=== PATIENT | female | born 1975 | race Caucasian/White ===

== ENCOUNTER → 2022-01-11 14:44 | Outpatient (CLI) | payer OTHER, MEDICAID, SELFPAY ==
--- NOTE | 2022-01-11 14:46 | DI.MRI.S_ITS ---
PROCEDURE: MR CERVICAL SPINE WO CON INDICATIONS: persistent neck pain with intermittent left arm radiculopat TECHNIQUE: Noncontrast sagittal T1 spin echo and T2 fast spin echo, sagittal STIR, foraminal oblique sagittal T2 fast spin echo, and axial gradient echo or T2 fast spin echo through the cervical spine. COMPARISON: [facility] ([place]), CR, XR CERVICAL SPINE 2V OR 3V, 02/23/2021, 11:23. FINDINGS: Image quality: Excellent. Alignment and Curvature: There is mild, approximately 3 millimeters of C5-C6 anterolisthesis. There is trace, approximately 2 millimeters of C6-C7 retrolisthesis. There is straightening normal cervical spine curvature. Bone Marrow: Marrow demonstrates normal overall signal. Spinal Cord: Visualized spinal cord has normal size and signal. No cerebellar tonsillar herniation. Paraspinous Soft Tissues: No paravertebral masses. Prevertebral soft tissues are normal in thickness. C2-C3: Has a normal appearance. Mild left facet hypertrophy. No central stenosis. Moderate left neural foraminal narrowing. No neural compression. C3-C4: Disc has a normal appearance. Mild left facet hypertrophy. No central stenosis. Mild left neural foraminal narrowing. No neural compression. C4-C5: Loss of disc signal and slight loss of disc height. Mild, diffuse disc bulge. Mild bilateral facet hypertrophy. No central stenosis. No neural foraminal narrowing. No neural compression. C5-C6: Loss of disc signal and slight loss of disc height. Mild to moderate diffuse disc bulge. Mild right and moderate left facet hypertrophy. Mild left uncovertebral joint hypertrophy. Mild narrowing of the central canal. Mild foraminal narrowing. No neural compression. C6-C7: Loss of disc signal. Mild to moderate diffuse disc bulge. Mild bilateral facet hypertrophy. Mild narrowing of the central canal. No neural foraminal narrowing. No neural compression. C7-T1: Normal appearance. IMPRESSION: 1. Multilevel degenerative disc disease. 2. Multilevel facet arthropathy. 3. No severe central canal narrowing. 4. No severe neural foraminal narrowing. 5. No neural compression. Dictated by: Erika Enrique MD, PhD on 01/11/2022 at 16:29 Approved by: Erika Enrique MD, PhD on 01/11/2022 at 16:33
== END ==
PROVIDERS: PCP Family Medicine; Referring Provider Family Medicine; Visit Provider Family Medicine
DX: M50.121 Cervical disc disorder at C4-C5 level with radiculopathy (principal); M47.22 Other spondylosis with radiculopathy, cervical region
CPT/HCPCS: 72141

== ENCOUNTER 2024-02-26 12:12 | Emergency (ER) | payer OTHER, MEDICAID, SELFPAY ==
[2024-02-26 12:16] VITALS: BP 137/71; PULSE 96; RESP 22; TEMP 36.8; O2SAT 95
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
--- NOTE | 2024-02-26 12:20 | PC.NURSE ---
Addendum entered by Brigida Swanson R.N. 02/26/24 13:57: patient smells of ETOH when asked if she had consumed any alcohol stupid question Original Note: Patient presented to ER very upset, tearful. Dr villegas at bedside with officers present. Patient became agitated, confrontational moving towards Dr Villegas. Patient repeatedly calling and staff inappropriate names such as kiley Davis Patient repeatedly made statements I don't want to live, there is no reason for me to be here No one can help me, no one loves me, I am going to from cancer anyways so why can't I just Patient agreeable at one point to lay down and get a blood draw. Tolerated fairly. Patient escalates easily, requires multiple people and attempts to redirect and calm down.
[2024-02-26 12:46] LABS: Add Manual Diff / Slide Review NO; Basophils Absolute Auto 100 /uL (0-100); Basophils Percent Auto 1.4 % (0-2); Eosinophils Absolute Auto 100 /uL (0-450); Hematocrit 45.9 % (36-46); Hemoglobin 15.7 g/dL (12.0-16.0); Lymphocytes Absolute Auto 1700 /uL (1100-4500); Lymphocytes Percent Auto 21.5 % (25-40); Mean Corpuscular HGB Conc 34.2 % (30-36); Mean Corpuscular Hemoglobin 34.4 PG (26-34); Mean Corpuscular Volume 100.6 fL (80-100); Monocytes Absolute Auto 300 /uL (0-900); Monocytes Percent Auto 3.9 % (3-14); Neutrophils Absolute Auto 5700 /uL (1500-7000); Neutrophils Percent Auto 72.2 % (50-75); Platelet Count 278 X10^3/uL (150-400); Red Blood Cell Count 4.56 X10^6/uL (4.0-5.2); Red Cell Distribution Width 13.4 % (11.6-14.8); White Blood Cell Count 7.9 X10^3/uL (4.5-11.0)
[2024-02-26] MEDS: OLANZapine 10 MG VIAL IM (12:50)
[2024-02-26] MEDS: LORazepam 2 MG/ML INJ IM (12:50)
[2024-02-26 12:58] LABS: Alanine Aminotransferase 68 IU/L (<35); Albumin 4.9 g/dL (3.5-5.0); Albumin Globulin Ratio 1.3 (1.0-2.8); Alkaline Phosphatase 91 U/L (38-126); Aspartate Aminotransferase 56 IU/L (14-36); BUN Creatinine Ratio 15.3 (6-22); Bilirubin Total 0.4 mg/dL (0.2-1.3); Blood Urea Nitrogen 11 mg/dL (7-17); Calcium 8.9 mg/dL (8.4-10.2); Carbon Dioxide 19 mmol/L (22-32); Chloride 112 mmol/L (98-107); Estimated Glomerular Filt Rate > 60 mL/min (>60); Globulin 3.8 g/dL (1.7-4.1); Glucose 113 mg/dL (70-100); HEMOLYSIS < 15 (0-50); Sodium 146 mmol/L (137-145); Total Protein 8.7 g/dL (6.3-8.2)
[2024-02-26 13:05] LABS: Ethanol (ETOH) 293 mg/dL
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
[2024-02-26 13:14] LABS: HCG Quantitative /Beta subunit < 2.39 mIU/mL
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
--- NOTE | 2024-02-26 13:30 | PC.NURSE ---
1230, after Triage assessment was completed, in which patient reported she was not suicidal, she then proceeded to report to multiple staff members that I want to . I heard her stating I want to hurt myself, just let me . Dr. silverman informed and aware that patient is a danger to self and is suicidal.
--- NOTE | 2024-02-26 13:31 | PC.NURSE ---
BINDERY MANAGER NOTE: patient is pulling left arm to try to break the restraint to go to the restroom. A bed umanzor was offered for patient and staff safety. Patient refused and said Find then Im going to piss the bed. patient continues to tug arms at legs with restraints after being asked not to so she does not cause any harm to herself.
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
[2024-02-26 13:35] LABS: TSH w/ Reflex to FT4 0.89 uIU/mL (0.47-4.68)
--- NOTE | 2024-02-26 13:45 | PC.NURSE ---
patient continues to pull and tug on restraints
--- NOTE | 2024-02-26 14:00 | PC.NURSE ---
patient continues to sit up and down in bed pulling and biting at restraints. When I try to verbally intervene the patient beings yelling at me.
--- NOTE | 2024-02-26 14:19 | PC.NURSE ---
Addendum entered by Cierra Nichols R.N. 02/26/24 14:48: 1430 Pt removed left arm restraint and tugging at and trying to remove bilateral LE restraints. Spoke with patient and she stated that she is going to kill herself if I take these restraints off. Pt became agitated, aggressive and began shouting at and calling ED staff vulgar names. Pt placed back in restraints. Original Note: LUE restraint removed.
--- NOTE | 2024-02-26 14:25 | PC.NURSE ---
patient was pulling on left restraint and pulling her hand out. TIM Norton was made aware.
[2024-02-26] MEDS: diphenhydrAMINE 50 MG/ML VIAL IM (14:44)
--- NOTE | 2024-02-26 15:13 | PC.NURSE ---
pt continues to chew off the pulse ox on her finger after being asked three times to leave it on so we can monitor her vitals. Patient Said I dont have to fucking keep that on, you need to let me go I am hiring a search engine optimization specialist.
--- NOTE | 2024-02-26 15:21 | PC.NURSE ---
patient pulled her pants down and said I'm gonna pee in the bed since you wont let me use a real bathroom and you get to clean up a pissy bed. I reminded the patient that multiple staff members have offered her a bed umanzor and she refused. I again offered her a bed umanzor before she began peeing in the bed and the patient said Nope, so you can clean up my pissy bed.
[2024-02-26] MEDS: KETAMINE 500 MG/5 ML INJ 250 MG IM (16:15)
--- NOTE | 2024-02-26 16:18 | PC.NURSE ---
Patient was biting at restraints, I entered the room to ask the patient to not do that, the patient yelled at me I can do what I want, now take these fucking things off of me. I exited the room to grab the patients nurse and our SW entered the room to offer fluids, the patient said NO i don't want any of that shit. The SW introduced her self and that is when the patient pulled her LUE out of the restraint. I grabbed the SW out of the room and notified her nurse.
--- NOTE | 2024-02-26 16:18 | PC.NURSE ---
Patient managed to remove left wrist from restraint. Attempted to redirect patient and discuss plan of care. Patient continues to yell at staff. just fucking let me go home and in peace Patient attempted to get out of bed. Staff assisted patient back into bed and placed back in restraints. Patient continues to thrash in bed against restraints. Redness and bruising noted. Out of restraints patient not re directable. Patient thrashing around in bed, pulling against bilateral wrist and leg restraints. you fucking bitch let me out of these restraints Your a fucking cunt. I hate you the most Multiple attempts to verbally redirect patient.
[2024-02-26 16:23] VITALS: BP 179/97; PULSE 112; RESP 12; O2SAT 95
--- NOTE | 2024-02-26 16:23 | PC.NURSE ---
1615 Pt able to slip hand out of LUE restraint. Pt remains agitated and aggressive. Continues to threaten staff. Pt states that she wants to go home and . Additional staff called to bedside to assist in putting pt back in restraints. Pt thrashing and attempting to get out of bed while lower extremities are in restraints. Bruising observed on wrists from pt thrashing and continuous attempts at removing restraints. Dr Villegas aware of pt status. Continuous pulse ox on pt after 250mg IM ketamine as per Dr Villegas order.
--- NOTE | 2024-02-26 16:28 | EKG_ITS ---
[address] [address] Test Date: 2024-02-26 Pat Name: Gillian Williamson Department: [facility] Room: Gender: Female Inspector Receiving: CHRISTINA : 1975 Requested By: Order Number: [id number] Reading MD: Judd Gunderson MD Measurements Intervals Foster Rate: 110 P: 56 AL: 164 QRS: 64 QRSD: 94 T: 26 QT: 344 QTc: 465 Interpretive Statements Sinus tachycardia Low voltage QRS Incomplete right bundle branch block Cannot rule out Anteroseptal infarct , age undetermined NO PRIOR TRACING Electronically Signed On 02-27-2024 8:26:19 PDT by Judd Gunderson MD
[2024-02-26 17:01] VITALS: BP 154/77; PULSE 85; RESP 12; O2SAT 96
--- NOTE | 2024-02-26 17:04 | PC.NURSE ---
Pt sleeping. Restraints removed. Equal rise and fall of chest observed. Skin pink warm and dry.
--- NOTE | 2024-02-26 17:33 | PC.NURSE ---
patient was asleep in bed and vomited down the side. Warm blankets were given and the bathroom was offered.
--- NOTE | 2024-02-26 17:50 | PC.NURSE ---
Pt vomited down side of bed. Provided clean sheets and offered bathroom. Pt declined using bathroom and is now laying in bed on her side. Pt remains out of restraints.
[2024-02-26 18:02] VITALS: BP 135/93; PULSE 90; RESP 12; O2SAT 94
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
[2024-02-26 18:30] VITALS: BP 141/73; PULSE 92; RESP 12; O2SAT 98
--- NOTE | 2024-02-26 18:32 | PC.NURSE ---
patient woke up from sleep and removed her blood pressure cuff and asked where her belongings were, I reassured the patient that her belongings are in a locked cabinet for safe keeping.
--- NOTE | 2024-02-26 18:47 | PC.NURSE ---
Pt ambulated to bathroom in room 13 with stand-by assist and steady gait. Pt sleepy but answers questions appropriately and is calm at this time.
[2024-02-26 18:49] VITALS: BP 152/85; PULSE 77; RESP 12; O2SAT 97
--- NOTE | 2024-02-26 18:49 | PC.NURSE ---
Patient sat up in bed and asked for water, water was provided and bathroom was offered. Patient was kind and cooperative using the bathroom.
[2024-02-26 18:56] LABS: Appearance Urine UA CLEAR; Bilirubin Urine UA NEGATIVE (NEGATIVE); Color Urine UA YELLOW; Glucose Urine UA NEGATIVE (Negative); Ketones Urine UA TRACE (NEGATIVE); Leukocyte Esterase Urine UA NEGATIVE (NEGATIVE); Nitrite Urine UA NEGATIVE (Negative); Occult Blood Urine UA 1+ (Negative); Protein Urine UA NEGATIVE (Negative); Urobilinogen Urine UA 0.2 E.U./dL (0.2)
[2024-02-26 19:08] LABS: pH Urine UA 5.5 (4.5-8.0)
[2024-02-26 19:09] LABS: Bacteria Urine Few (2-10); Culture Indicated Urine Cult Not Indicated; RBC Urine 0-1/HPF (0-5/HPF); Squamous Epithelial Cell Urine 0-1 /HPF (0-5/HPF); Urine Volume 10mL (spun); WBC Urine 0-1/HPF (0-5/HPF)
[2024-02-26 19:17] LABS: Ur Creatinine Normal (Normal); Ur Specific Gravity Normal (Normal); Urine Amphetamines Negative (Negative); Urine Barbiturates Negative (Negative); Urine Benzodiazepines Positive (Negative); Urine Cocaine Negative (Negative); Urine MDMA Negative (Negative); Urine Methadone Negative (Negative); Urine Methamphetamines Negative (Negative); Urine Opiates Negative (Negative); Urine Oxycodone Negative (Negative); Urine Phencyclidine Negative (Negative); Urine THC Positive (Negative); Urine Tricyclic Antidepressant Negative (Negative); Urine pH Normal (Normal)
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
[2024-02-27 01:32] LABS: Ethanol (ETOH) < 10 mg/dL
--- NOTE | 2024-02-27 01:33 | PC.NURSE ---
DCR will arrive in 30 minutes to speak with pt.
--- NOTE | 2024-02-27 02:02 | PC.NURSE ---
DCR Erick Rubin arrived. In with pt at this time.
--- NOTE | 2024-02-27 03:19 | PC.NURSE ---
Pt given 1/2 egg salad sandwich, applesauce, and ice water at this time.
[2024-02-27 05:48] VITALS: BP 136/84; PULSE 78; RESP 20; O2SAT 96
== END 2024-02-27 05:49 | disposition home or self-care (01) ==
PROVIDERS: Emergency Medicine; Emergency Provider Emergency Medicine; PCP Family Medicine
DX: F10.129 Alcohol abuse with intoxication, unspecified (principal); Y90.8 Blood alcohol level of 240 mg/100 ml or more; R45.6 Violent behavior; F84.0 Autistic disorder; R00.0 Tachycardia, unspecified
CPT/HCPCS: 36415; 80053; 80305; 80320; 81001; 84443; 84702; 85025; 93005; 93010; 96372; 99285; J1200; J2060; J2359

== ENCOUNTER → 2024-04-28 16:03 | Outpatient (CLI) | payer OTHER, MEDICAID, SELFPAY ==
--- NOTE | 2024-04-28 16:04 | DI.MG.S_ITS ---
BILATERAL DIGITAL SCREENING MAMMOGRAM 3D/2D WITH CAD: 04/28/2024 CLINICAL: Baseline exam. Routine screening. Family history of breast cancer. No prior exams were available for comparison. The breasts are heterogeneously dense, which may obscure small masses (category c / 51-75% glandular tissue). Current study was also evaluated with a Computer Aided Detection (CAD) system. There are calcifications in the right breast upper outer quadrant. No other significant masses, calcifications, or other findings are seen in either breast. IMPRESSION: INCOMPLETE: NEED ADDITIONAL IMAGING EVALUATION The calcifications in the right breast are indeterminate. Diagnostic mammogram for additional views to include mediolateral and spot magnification views is recommended. Based on the Tyrer Cuzick model (a risk assessment model) the patient's lifetime risk is 18.3% and her 10 year risk is 3.8%. According to the ACR, ACS, and NCCN guidelines, an annual breast MRI exam along with mammogram is recommended if the patient's lifetime risk is 20% or greater. This exam was interpreted at Station ID: [id number]. NOTE: For mammograms, a report in lay terms will be sent to the patient. Approximately 15% of breast malignancies will not be visualized mammographically. In the management of a palpable breast mass, a negative mammogram must not discourage biopsy of a clinically suspicious lesion. Electronically Signed By: Sarahy Zacarias M.D., Ph.D. eb/:04/29/2024 17:10:07 letter sent: Additional Imaging Needed ACR BI-RADS Category 0: Incomplete: Need Additional Imaging Evaluation
== END ==
LOC: MAMMO 16:03
PROVIDERS: PCP Family Medicine; Referring Provider Family Medicine; Visit Provider Family Medicine
DX: Z12.31 Encounter for screening mammogram for malignant neoplasm of breast (principal); R92.333 Mammographic heterogeneous density, bilateral breasts; Z80.3 Family history of malignant neoplasm of breast
CPT/HCPCS: 77063; 77067

== ENCOUNTER → 2024-07-01 15:52 | Outpatient (CLI) | payer OTHER, SELFPAY ==
--- NOTE | 2024-07-01 15:54 | DI.MRI.S_ITS ---
BREAST MRI OF BOTH BREASTS: 07/01/2024 CLINICAL: Malignant neoplasm of the Right breast. Comparison is made to exam dated: 04/28/2024 [facility]. Additional outside studies and biopsy results are unavailable for comparison at the time of this dictation. INDICATIONS: MALIGNANT NEOPLASM RT FEMALE BREAST TECHNIQUE: The patient was placed prone in a dedicated breast imaging coil. Precontrast axial STIR and 3D FLASH without fat saturation sequences were obtained. Both before and after bolus injection of contrast, sequential 1-minute axial 3D FLASH with fat saturation sequences for 3 time points, with subtraction images and maximum intensity projections (MIP's) generated. Delayed sagittal FLASH images with fat saturation were also obtained. Computer-aided detection, including computer algorithm analysis of MRI image data for lesion detection and characterization, pharmacokinetic analysis, with further physician review for interpretation, was performed. FINDINGS: Image quality: Excellent. There is mild background parenchymal enhancement. There are heterogeneous fibroglandular elements in both breasts. Right breast: Large irregular hyperenhancing mass in the right breast involving the upper outer and upper inner quadrants with surrounding clumped non-mass enhancement. Enhancement involves the nipple areola complex and extends posteriorly nearly to the chest wall, spanning a region of approximately 12 cm in anterior-posterior extent. Distance to the chest wall is approximately 1.8 cm. A few small foci of contrast enhancement in the lower outer quadrant may represent satellite nodules. Mild hyperenhancement of the skin at the nipple-areolar complex. There is skin thickening and edema throughout the anterior medial breast without associated skin enhancement. Kinetic curve assessment demonstrates rapid enhancement with progressive and plateau delayed phase kinetics. A few nonspecific foci of contrast enhancement are seen more inferiorly in the right breast that appears similar to left breast enhancement and likely represents normal fibroglandular tissue. Increased number of small axillary lymph nodes are present, some of which have a slightly rounded configuration but are not well characterized due to their size and are indeterminate. No significantly enlarged lymph nodes by size criteria. No internal mammary lymphadenopathy. Left breast: Scattered small foci of enhancement in the left breast are likely related to normal background parenchymal enhancement. No suspicious axillary or internal mammary lymphadenopathy. Miscellaneous: A 0.7 cm peripherally enhancing nodule is seen in the lateral left upper lobe (/). Included portions of the anterior chest wall and upper abdomen otherwise demonstrate no significant abnormality. IMPRESSION: ZAHMT-SHIMPL-NLRRDI MALIGNANCY 1. Large irregular mass throughout the upper inner and outer quadrants of the right breast with surrounding clumped non-mass enhancement spanning of region of approximately 12 cm, consistent with patient's known malignancy. Suspected small satellite lesions in the lower outer quadrant. There is involvement of the nipple areola complex with surrounding skin thickening and edema in the anterior and medial breast. 2. Increased number of small right level 1 axillary lymph nodes, some of which have a slightly rounded morphology and are indeterminate. No significantly enlarged axillary lymph nodes by size criteria. No internal mammary lymphadenopathy. 3. No MR evidence malignancy in the left breast. No left axillary or internal mammary lymphadenopathy. 4. Indeterminate 0.7 cm left pulmonary nodule. Consider CT of the chest for further evaluation. BIRADS 6: Known biopsy-proven malignancy. Recommend surgery/oncology follow-up. Recommend chest CT for further evaluation of left pulmonary nodule. This exam was interpreted at Station ID: [id number]. Electronically Signed By: Jovon Alanis M.D. ar/:07/02/2024 20:10:06 ACR BI-RADS Category 6: Pujnf-Stgsum-Ehbfwp Malignancy
== END ==
LOC: MRI 15:54
PROVIDERS: PCP Student in an Organized Health Care Education/Training Program; Referring Provider Student in an Organized Health Care Education/Training Program; Visit Provider Student in an Organized Health Care Education/Training Program
DX: C50.811 Malignant neoplasm of overlapping sites of right female breast (principal); R91.1 Solitary pulmonary nodule
CPT/HCPCS: 77049; A9579

== ENCOUNTER → 2024-09-15 15:33 | Outpatient (CLI) | payer OTHER, SELFPAY ==
--- NOTE | 2024-09-15 15:35 | DI.MRI.S_ITS ---
MR breast BI wo/w con: 09/15/2024. BI-RADS: 6 CLINICAL: 48-year old female for bilateral diagnostic breast MRI. Known cancer: follow up post celeste-adjuvant chemotherapy. PRIOR EXAMS: 07/01/2024, 04/28/2024, PET/CT 07/22/2024. MRI TECHNIQUE: Bilateral breast MRI was performed on a 1.5 Demi magnet using a dedicated breast coil with mild compression. Axial T1 and T2 STIR sequences were obtained. Dynamic contrast enhanced VIBRANT fat-suppressed sequences were obtained. Delayed sagittal high resolution or sagittal reconstructed isotropic sequence was also obtained. Subtraction images and maximum intensity projection images were obtained. The study was evaluated using [employer] software. IV Contrast: 20 ml ProHance. FIBROGLANDULAR TISSUE Bilateral: C. Heterogeneous fibroglandular tissue. BACKGROUND PARENCHYMAL ENHANCEMENT Bilateral: Mild symmetrical background parenchymal enhancement. BREAST FINDINGS Right: Compared to 07/01/2024, complete resolution of the irregular enhancing mass and clumped nonmass enhancement involving the superior right breast. Faint residual enhancing foci on the delayed images favored to represent fibrosis from treatment response versus normal background parenchymal enhancement rather than residual disease. No definite abnormal nipple or chest wall enhancement. Resolved right breast skin thickening and edema. Left: Benign-appearing intramammary lymph node(s) noted. No suspicious mass, suspicious non-mass enhancement, or other concerning finding identified. Bilateral: There are no abnormal axillary or internal mammary lymph nodes. CHEST FINDINGS Evaluation of osseous metastases is limited in the setting of new diffuse marrow enhancement of the sternum and ribs, likely a result of G-CSF treatment effect. Right: Right chest Port-A-Cath. Left: Interval increase in size of the enhancing pulmonary nodule in the left lung, now measuring 1.6 x 1.8 x 2.1 cm (AP x ML x SI), previously 0.7 x 0.9 x 0.6 cm. IMPRESSION: * Interval increase in size of the left pulmonary nodule compared to 07/01/2024. This could be infectious, inflammatory or malignant. Right * Complete resolution of the irregular enhancing mass and nonmass enhancement of the superior right breast. Previously described rounded right level 1 axillary lymph nodes are decreased in size, and demonstrate normal morphology. * Known Biopsy-Proven Malignancy. Left * No evidence of malignancy. RECOMMENDATIONS * Interval increase in size of the left pulmonary nodule compared to 07/01/2024. Recommend further evaluation with dedicated CT chest with contrast. Right * Recommend continued surgical and oncologic management of the patient's known malignancy. COMMENTS: The imaging literature indicates that a negative contrast breast MRI examination has a high sensitivity and a moderate specificity for detecting and excluding invasive carcinomas to a detection threshold of 3-5 mm; nonetheless, appropriate clinical and mammographic follow-up are recommended. MRI is not sensitive for detecting DCIS (ductal carcinoma in situ) and may not detect large invasive neoplasms that show only minimal enhancement such as mucinous carcinoma. If there are suspicious calcifications or clinically worrisome palpable masses, then biopsy should still be considered. Invasive neoplasms can be hidden by co-existent and benign enhancement caused by mastitis, hormone therapy effects, radiation therapy, , and recent biopsy or surgery. False positive examinations can occur in a number of circumstances, including breasts that have recently been subject to invasive procedures and those that contain atypical ductal hyperplasia, hormonally stimulated glandular tissue, fat necrosis, or radial scars. OVERALL ASSESSMENT CATEGORY BI-RADS-6: Known Biopsy-Proven Malignancy. ELECTRONICALLY SIGNED: Faye Storey M.D. on 09/16/2024 at 11:54:15 AM PT Interpreting Station ID: [id number]
== END ==
PROVIDERS: PCP Student in an Organized Health Care Education/Training Program; Referring Provider Internal Medicine; Visit Provider Internal Medicine
DX: C50.911 Malignant neoplasm of unspecified site of right female breast (principal); R91.1 Solitary pulmonary nodule
CPT/HCPCS: 77049; A9579

== ENCOUNTER → 2024-10-05 11:12 | Outpatient (CLI) | payer OTHER, SELFPAY ==
--- NOTE | 2024-10-05 11:18 | DI.CT.S_ITS ---
PROCEDURE: CT CHEST W CON INDICATIONS: Chest Pain TECHNIQUE: After the administration of intravenous contrast, 5 mm thick sections acquired from the pulmonary apices to the posterior costophrenic angles. 1 mm axial lung, 5 mm thick coronal and sagittal reformats and 7 mm axial MIP were acquired. For radiation dose reduction, the following was used: automated exposure control, adjustment of mA and/or kV according to patient size. COMPARISON: [facility], [place], [place] PET CT FUSION SKULL 2 THIGH, 07/22/2024, 12:22. Outside Facility, CT, CT CHEST ABD PEL W CON, 11/24/2022, 22:42. FINDINGS: Lower Neck: No enlarged lymph nodes. Thyroid: No thyroid nodules which require sonographic follow up, per consensus guidelines. Axillae: No enlarged lymph nodes. Chest Wall: Port-A-Cath in place Bones: Unremarkable. Lungs and Pleura: Left upper lobe spiculated pulmonary nodule measures 1.1 x 1.4 cm, new from prior exam, is associated with prior calcified granuloma. Small 4 mm nodule along the prior exam now measures less than 1 mm in the left upper lobe Heart: Heart size is normal. No pericardial effusion. Thoracic Vessels: The aorta and pulmonary arteries demonstrate normal size. Mediastinum and Candida: No enlarged lymph nodes. Esophagus: No wall thickening. No hiatal hernia. Upper Abdomen: Visualized upper abdomen solid organs and bowel loops appear normal. IMPRESSION: New 1.4 cm peripheral left upper lobe nodule soft tissue component associated with previously noted calcified granuloma. Consider percutaneous biopsy versus PET-CT Approved by: Catarino Buckner M.D. on 10/05/2024 at 18:54
== END ==
PROVIDERS: PCP Student in an Organized Health Care Education/Training Program; Referring Provider Student in an Organized Health Care Education/Training Program; Visit Provider Student in an Organized Health Care Education/Training Program
DX: R91.1 Solitary pulmonary nodule (principal)
CPT/HCPCS: 71260; Q9967

== ENCOUNTER → 2024-10-22 14:49 | Outpatient (CLI) | payer OTHER, SELFPAY ==
--- NOTE | 2024-10-22 14:52 | DI.ECHO.S_ITS ---
[facility] : : [address] : [place] : : [id number] : : Phone: [phone] Echocardiogram Report + + :Name: ARIEL WASSEMRAN Study Date: 10/22/2024 Height: 65 in : :Hospital ReadingLocation: Weight: 150 lb : : Gender: Female BSA: 1.8 m2 : :: 1975 Age: 49 yrs BP: 138/81 mmHg: :Reason For Study: PRE-OP CLEARANCE, BREAST CANCER : :Ordering Physician: CANDIDA : :YVAN Performed By: Pérez Claudio : :Referring: YVAN TIRADO : + + Interpretation Summary 1) Normal left ventricular thickness, size, wall motion, and systolic function (EF 60-65%). 2) Normal right ventricular size and function. 3) No significant valvular abnormalities. 4) No prior Echo available for comparison. Procedure: A two-dimensional transthoracic echocardiogram with color flow and Doppler was performed. The study quality was technically good. There is no prior echocardiogram noted for this patient. The patient was in normal sinus rhythm during the exam. Left Ventricle: The left ventricle is normal in size. There is normal left ventricular wall thickness. There is no ventricular septal defect visualized. The ejection fraction is estimated to be 60-65%. There are no focal wall motion abnormalities. Diastolic parameters suggest probable normal left ventricular diastolic function and normal filling pressures. Right Ventricle: The right ventricle is normal in size and function. Atria: The left atrial size is normal. Right atrial size is normal. There is no Doppler evidence for an interatrial shunt. Mitral Valve: The mitral valve leaflets appear normal. There is no evidence of stenosis, fluttering, or prolapse. There is no mitral regurgitation noted. Aortic Valve: The aortic valve is trileaflet. The aortic valve opens well. There is no aortic valve stenosis. No aortic regurgitation is present. Tricuspid Valve: The tricuspid valve is normal in structure and function. There is trace tricuspid regurgitation. The right ventricular systolic pressure is estimated to be at least 22 mmHg based on an estimated right atrial pressure of 3 mm Hg. Pulmonic Valve: The pulmonic valve is not well seen, but is grossly normal. There is no pulmonic valvular regurgitation. Great Vessels: The aortic root is normal size. The dimensions of the ascending aorta are normal. The pulmonary artery is normal size. The IVC is of normal diameter and collapses greater than 50% with a sniff. This suggests a low right atrial pressure of 3 mm Hg. Pericardium/ Pleura There is no pericardial effusion. There is no pleural effusion. MMode/2D Measurements & Calculations LVIDd: 4.6 cm LVOT diam: 1.9 cm LVIDs: 3.0 cm Ao root diam: 3.0 cm FS: 35.4 % asc Aorta Diam: 2.9 cm EPSS: 0.45 cm Ao Arch Diam (Prox Trans): 1.4 cm IVSd: 0.89 cm LVPWd: 0.82 cm LV pruitt. diameter/BSA (cm/m^2): 2.6 LV sys. diameter/BSA (cm/m^2): 1.7 LA A2 area: 17.9 cm2 RA long axis: 4.5 cm LA A4 area: 13.5 cm2 RA area: 13.0 cm2 LA length (vol): 5.1 cm RA vol: 32.0 ml LA vol: 39.9 ml RA : 18.3 ml/m2 LA vol index: 22.8 ml/m2 IVC diam: 1.6 cm RVD1 (basal): 3.0 cm RVD2 (mid): 2.4 cm TAPSE: 2.5 cm Doppler Measurements & Calculations Ao V2 max: 146.2 cm/sec LVOT Max Jw: 110.5 cm/sec Ao V2 mean: 101.8 cm/sec LV V1 max P.9 mmHg Ao max P.6 mmHg LV V1 VTI: 23.4 cm Ao mean P.6 mmHg ILDA(I,D): 2.4 cm2 Ao V2 VTI: 29.1 cm ILDA(V,D): 2.2 cm2 sev ratio: 0.81 ILDA indexed to BSA (cm^2/m^2): 1.4 MV E max jw: 77.5 cm/sec TR max jw: 219.7 cm/sec MV A max jw: 66.4 cm/sec TR max P.3 mmHg MV E/A: 1.2 PA V2 max: 91.5 cm/sec Med Peak E' Jw: 7.0 cm/sec PA V2 mean: 64.1 cm/sec E/E' med: 11.1 PA mean P.8 mmHg Lat Peak E' Jw: 11.5 cm/sec PA pr(Accel): 7.1 mmHg E/E' lat: 6.7 E/e' average: 8.9 MV dec time: 0.15 sec SVLVOT): 69.5 ml Reading Physician:05:47 PM
== END ==
PROVIDERS: PCP Student in an Organized Health Care Education/Training Program; Referring Provider Student in an Organized Health Care Education/Training Program; Visit Provider Student in an Organized Health Care Education/Training Program
DX: I07.1 Rheumatic tricuspid insufficiency (principal); R91.1 Solitary pulmonary nodule
CPT/HCPCS: 93306